=== PATIENT | female | born 1970 | race Caucasian/White ===

== ENCOUNTER 2022-03-03 08:41 | Observation (INO) | payer BC ==
[~2022-03-03] VITALS: Ht 162.6 cm; Wt 64.4 kg
[2022-03-03 09:27] LABS: HEMOGLOBIN 14.5 gm/dl (12.3-15.3); RED BLOOD COUNT 4.96 M/UL (4.00-5.10); WHITE BLOOD COUNT 15.3 K/UL (4.5-11.0)
[2022-03-03 09:49] LABS: BUN/CREATININE RATIO 13 (0-10)
[2022-03-03] MEDS ORDERED: COMBIPATCH 0.01 EACH TD (16:39)
[2022-03-03] MEDS ORDERED: TRULICITY1.5 MG/0.5 SQ (16:44)
[2022-03-03] MEDS ORDERED: FEXOFENADINE HC60 MG PO (16:45)
[2022-03-03] MEDS ORDERED: PROBIOTIC1 EACH PO (16:45)
[2022-03-05] MEDS ORDERED: ZOFRAN ODT 4 MG4 MG GT (12:29)
[2022-03-05] MEDS ORDERED: HYDROCODON-ACE1 EAC4 PO (12:29)
== END 2022-03-05 14:37 | disposition home or self-care (01) ==
LOC: ER1 08:41 → MED SURG 4 15:51 → CDU 15:51 → MED SURG 4 17:31
PROVIDERS: ADMIT Surgery
PROC: 0FT44ZZ Resection of Gallbladder, Percutaneous Endoscopic Approach (ICD-10-PCS; principal; 2022-03-04 12:45)
DX: K80.12 Calculus of gallbladder with acute and chronic cholecystitis without obstruction (principal); K82.1 Hydrops of gallbladder; Z79.899 Other long term (current) drug therapy
CPT/HCPCS: 76705; 80053; 81001; 83690; 85025; 87086; 94760; 96374; 96375; 96376; 99284; C1729; G0378; J1100; J1885; J2001; J2250; J2270; J2405; J2543; J2704; J2710; J3010; Q9967